=== PATIENT | female | born 1950 | race African-American/Black ===

== ENCOUNTER 2016-07-02 13:00 | Emergency (ER) | payer OTHER ==
[~2016-07-02 13:00] MED LIST: ALBUAER3 INH; AMLO10TA2 PO; ASPI1TAB69 PO; ATOR40TA16 PO; CARV6.252 PO; CHOL1TAB35 PO; CLON0.1T PO; FLUT1SPR22 NASAL; LOSA100T PO; METO50TA PO; SPIRCAP INH; VALS1TAB70 PO
[2016-07-02 13:02] VITALS: BP 187/77; PULSE 84; RESP 15; TEMP 97.3; O2SAT 95
--- NOTE | 2016-07-02 14:22 | RADRPT ---
EXAM DATE/TIME: 07/02/2016 13:52 [facility] COMPARISON: CHEST SINGLE AP, May 19, 2012, 10:03. INDICATIONS : Chest pain. MEDICAL HISTORY : Chronic obstructive pulmonary disease. SURGICAL HISTORY : None. ENCOUNTER: Initial ACUITY: 1 day PAIN SCORE: 5/10 LOCATION: Right upper chest FINDINGS: A single view of the chest demonstrates the lungs to be symmetrically aerated without evidence of mas s, infiltrate or effusion. The cardiomediastinal contours are unremarkable. Osseous structures are intact. CONCLUSION: Normal examination for a patient of this age. No significant change has occurred. Mike Huston MD on July 02, 2016 at 14:19 Board Certified Radiologist. This report was verified electronically.
[2016-07-02 15:02] LABS: AUTOMATED NEUTROPHIL # 4.9 TH/MM3 (1.8-7.7); BASOPHIL # 0.1 TH/MM3 (0-0.2); BASOPHIL % 0.6 % (0.0-2.0); EOSINOPHIL # 0.8 TH/MM3 (0-0.4); EOSINOPHIL % 8.1 % (0.0-4.0); HEMATOCRIT 35.1 % (35.0-46.0); HEMO FLAGS DIFF FINAL; LYMPH % 32.6 % (9.0-44.0); MEAN CELL VOLUME 86.1 FL (80.0-100.0); MEAN CORPUSCULAR HEMOGLOBIN 27.9 PG (27.0-34.0); MEAN CORPUSCULAR HGB CONC 32.4 % (32.0-36.0); NEUT % 52.7 % (16.0-70.0); PLATELET COUNT 287 TH/MM3 (150-450); RED BLOOD COUNT 4.08 MIL/MM3 (4.00-5.30); RED CELL DISTRIBUTION WIDTH 14.1 % (11.6-17.2); WHITE BLOOD COUNT 9.3 TH/MM3 (4.0-11.0)
[2016-07-02 16:15] VITALS: BP_SYST 138; BP_SYST 141; BP_DIAS 78; BP_DIAS 81
[2016-07-02] MEDS ORDERED: METF500T PO (16:18)
[2016-07-02] MEDS ORDERED: SIMV40TA PO (16:18)
[2016-07-02] MEDS ORDERED: GLYB5TAB3 PO (16:18)
[2016-07-02] MEDS ORDERED: EXFO10TA2 PO (16:18)
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
[2016-07-02 16:30] VITALS: RESP 18; O2SAT 98
[2016-07-02] MEDS ORDERED: ASPIRIN 81 MG CHEW TAB PO ONE (16:30)
[2016-07-02] MEDS ORDERED: SODIUM CHLORIDE 0.9% FLUSH 5 ML FLUSH IVF PRN (16:30)
[2016-07-02 17:00] VITALS: BP 141/78; PULSE 78; RESP 18; O2SAT 98
[2016-07-02] MEDS ORDERED: RESP: ALBUTEROL 2.5 MG/IPRATROPIUM 0.5 MG NEB (SCH) NEB ONE (17:45)
[2016-07-02 17:54] LABS: APTT (PATIENT) 27.5 SEC (24.3-30.1); INTERNATIONAL NORMALIZED RATIO 0.9 RATIO; PROTHROMBIN TIME - PATIENT 10.3 SEC (9.8-11.6)
[2016-07-02 17:57] LABS: ANION GAP 10 MEQ/L (5-15); BICARBONATE 21.5 MEQ/L (21.0-32.0); BLOOD UREA NITROGEN 46 MG/DL (7-18); CHLORIDE 109 MEQ/L (98-107); GLOMERULAR FILTRATION RATE 26 ML/MIN (>89); POTASSIUM 4.4 MEQ/L (3.5-5.1); SODIUM (NA) 140 MEQ/L (136-145)
[2016-07-02 18:03] LABS: CREATINE KINASE 35 U/L (26-192)
--- NOTE | 2016-07-03 22:58 | EKG ---
Date Performed: 07/02/2016 Time Performed: 13:40:12 PTAGE: 65 years EKG: Sinus rhythm NORMAL ECG PREVIOUS TRACING : 06/24/2010 15.26 DOCTOR: Georgina Johnston Interpretating Date/Time 07/03/2016 22:50:06
[2016-09-09] MEDS ORDERED: VITA10003 PO ×2 (15:35→15:38)
[2016-09-09] MEDS ORDERED: CARV6.252 PO ×2 (15:35→15:38)
[2016-09-09] MEDS ORDERED: LOSA50TA2 PO ×2 (15:35→15:38)
[2016-09-09] MEDS ORDERED: CLON0.1T PO ×2 (15:35→15:38)
[2016-09-09] MEDS ORDERED: METO50TA PO ×2 (15:35→15:38)
[2016-09-09] MEDS ORDERED: ASPI81CH CHEW ×2 (15:35→15:38)
[2016-09-09] MEDS ORDERED: ATOR40TA16 PO ×2 (15:35→15:38)
[2016-09-09] MEDS ORDERED: SPIRCAP INH ×2 (15:35→15:38)
[2016-09-09] MEDS ORDERED: ALBUAER3 INH (15:38)
[2016-09-30] MEDS ORDERED: SODI15SU PO (16:21)
[2016-10-01] MEDS ORDERED: BLOOD GLUCOSE T1 TES (14:19)
[2016-10-01] MEDS ORDERED: BLOOD GLUCOSE M1 KIT (14:19)
[2016-10-19] MEDS ORDERED: ASPI81CH CHEW (11:17)
[2016-11-03] MEDS ORDERED: CLON0.1T PO (11:47)
[2016-11-03] MEDS ORDERED: METO50TA PO (11:47)
[2016-11-03] MEDS ORDERED: LOSA50TA2 PO (11:47)
== END 2016-07-02 20:30 | disposition home or self-care (01) ==
LOC: NEPC 13:00
DX: R07.89 Other chest pain (principal); R11.0 Nausea; R06.02 Shortness of breath; R06.2 Wheezing; E11.9 Type 2 diabetes mellitus without complications; I10 Essential (primary) hypertension; E78.00 Pure hypercholesterolemia, unspecified; F17.200 Nicotine dependence, unspecified, uncomplicated; Z79.84 Long term (current) use of oral hypoglycemic drugs; Z87.09 Personal history of other diseases of the respiratory system; Z86.79 Personal history of other diseases of the circulatory system; Z86.73 Personal history of transient ischemic attack (TIA), and cerebral infarction without residual deficits
CPT/HCPCS: 71010; 80048; 82550; 84484; 85025; 85610; 85730; 93005; 94664